=== PATIENT | male | born 1940 | race Caucasian/White ===

== ENCOUNTER 2017-03-19 01:53 | Inpatient (IN) | payer MEDICARE, OTHER ==
[~2017-03-19] VITALS: Ht 167.6 cm; Wt 77.8 kg
[~2017-03-19 01:53] MED LIST: AMLO5TAB2 PO; BUP75T PO; CARB25TA57 PO; ENTA200T4 PO; INSLANTI SC; QUET50TA25 PO; ROPI2TAB4 PO; ZOLP5TAB5 PO
[2017-03-19] MEDS ORDERED: DEXTROSE (50%) 50ML SYRG IV ONE ×2 (02:15→02:45)
[2017-03-19 02:30] LABS: INR 1.17 (0.9-1.15); Partial Thromboplastin Time 28.9 sec (22.64-33.71); Prothrombin Time 12.8 sec (9.37-12.3)
[2017-03-19 02:38] LABS: Albumin 3.7 g/dL (3.4-5.0); Alkaline Phosphatase 56 U/L (45-117); Anion Gap 6 (5-15); Aspartate Aminotransferase 15 U/L (15-37); BUN/Creatinine Ratio 15.7; Bilirubin, Total 0.5 mg/dL (0.2-1.0); Blood Urea Nitrogen 16 mg/dL (7-18); Carbon Dioxide 27 mmol/L (21-32); Chloride 108 mmol/L (98-107); GFR African American 91 mL/min; GFR Non-African American 75 mL/min; Magnesium 2.3 mg/dL (1.6-2.6); Potassium 3.2 mmol/L (3.5-5.1); Sodium 141 mmol/L (136-145)
[2017-03-19 02:39] LABS: Glucose 47 mg/dL (74-106)
[2017-03-19 02:51] LABS: Urine Bilirubin Negative (Negative); Urine Blood 2+ /uL (Negative); Urine Color Yellow (Yellow); Urine Glucose TRACE mg/dL (Normal); Urine Ketone Negative (Negative); Urine Nitrite Negative (Negative); Urine RBC 53 /hpf (0 - 3); Urine Urobilinogen Normal (Negative); Urine pH 6.5 (5.0-8.0)
[2017-03-19] MEDS ORDERED: DEXTROSE 10% 1,000 ML IV ONE (05:00)
[2017-03-19 05:07] LABS: Basophils # (auto) 0 uL; Basophils % (auto) 0.5 % (0.0-2.0); Eosinophils # (auto) 0.1 uL; Eosinophils % (auto) 1.1 % (0.0-7.0); Hematocrit 45.9 % (41.0-53.0); Hemoglobin 15.7 g/dL (13.5-17.5); Lymphocytes # (auto) 1.9 uL; Lymphocytes % (auto) 23.2 % (10.0-50.0); Mean Corpuscular Hemoglobin 31.5 pg (28.0-32.0); Mean Corpuscular Hgb Conc. 34.3 g/dL (32.0-36.0); Mean Corpuscular Volume 91.8 fL (80.0-100.0); Mean Platelet Volume 7.3 fL (6.9-10.8); Monocytes # (auto) 0.8 uL; Monocytes % (auto) 9.7 % (0.0-12.0); Neutrophils # (auto) 5.5 uL; Neutrophils % (auto) 65.5 % (37.0-80.0); Platelet Count (auto) 160 10^3/uL (140-450); Red Cell Distribution Width 14.2 % (11.8-14.3); White Blood Cell 8.3 10^3/uL (4.4-10.8)
[2017-03-19] MEDS ORDERED: ACETAMINOPHEN 500 MG TAB PO PRN (07:15)
[2017-03-19] MEDS ORDERED: DEXTROSE (50%) 50ML SYRG IV PRN (07:15)
[2017-03-19] MEDS ORDERED: ONDANSETRON HCL 4 MG/2 ML VIAL IV PRN (07:15)
[2017-03-19] MEDS ORDERED: POTASSIUM CHL 20 Meq TABLET PO ONE (07:45)
[2017-03-19] MEDS ORDERED: ZOLPIDEM TARTRATE 5 MG TAB PO PRN (07:45)
[2017-03-19] MEDS: ACCU-CHEK COMFORT CURVE STRIP VI SCH ×5 (08:00→22:49)
[2017-03-19] MEDS: QUEtiapine FUMARATE 25 MG TAB PO SCH ×2 (10:06→20:51)
[2017-03-19] MEDS: amLODIPine BESYLATE 5 MG TAB PO SCH (10:07)
[2017-03-19] MEDS: HYDROcodone-ACET 5/325MG TAB PO PRN ×2 (10:32→20:52)
[2017-03-19 11:53] LABS: Temperature: 21.5 C (20.0-25.0)
[2017-03-19] MEDS: CARBIDOPA W LEVODOPA 25/100mg TABLET PO SCH ×2 (14:27→20:52)
[2017-03-19 17:01] VITALS: BP 125/75
[2017-03-19 20:00] VITALS: BP 154/77
[2017-03-20] VITALS (7 sets, daily range): BP systolic 105–138; BP diastolic 48–70
[2017-03-20] MEDS: ACCU-CHEK COMFORT CURVE STRIP VI SCH ×5 (04:00→20:00)
[2017-03-20] MEDS: CARBIDOPA W LEVODOPA 25/100mg TABLET PO SCH ×3 (05:30→21:39)
[2017-03-20] MEDS: HYDROcodone-ACET 5/325MG TAB PO PRN ×3 (05:31→21:39)
[2017-03-20 06:14] LABS: Basophils # (auto) 0 uL; Basophils % (auto) 0.6 % (0.0-2.0); Eosinophils # (auto) 0.1 uL; Eosinophils % (auto) 2.4 % (0.0-7.0); Hematocrit 45.5 % (41.0-53.0); Hemoglobin 15.4 g/dL (13.5-17.5); Lymphocytes % (auto) 32.8 % (10.0-50.0); Mean Corpuscular Hemoglobin 31.3 pg (28.0-32.0); Mean Corpuscular Hgb Conc. 33.9 g/dL (32.0-36.0); Mean Corpuscular Volume 92.4 fL (80.0-100.0); Mean Platelet Volume 6.9 fL (6.9-10.8); Monocytes # (auto) 0.5 uL; Monocytes % (auto) 8.6 % (0.0-12.0); Neutrophils # (auto) 3.3 uL; Neutrophils % (auto) 55.6 % (37.0-80.0); Nucleated Red Blood Cells % 0.1 %; Platelet Count (auto) 142 10^3/uL (140-450); Red Cell Distribution Width 14.6 % (11.8-14.3)
[2017-03-20 06:36] LABS: Calcium 7.8 mg/dL (8.5-10.1); Potassium 3.9 mmol/L (3.5-5.1)
[2017-03-20] MEDS: QUEtiapine FUMARATE 25 MG TAB PO SCH ×2 (10:04→21:39)
[2017-03-20] MEDS: amLODIPine BESYLATE 5 MG TAB PO SCH (10:05)
[2017-03-20] MEDS ORDERED: buPROPion HCL 75 MG TAB PO ONE (10:15)
[2017-03-20] MEDS ORDERED: LACTULOSE 20Gm/30ML SOLN PO PRN (13:45)
[2017-03-20] MEDS ORDERED: LACTULOSE 20Gm/30ML SOLN PO ONE (13:45)
[2017-03-20] MEDS: buPROPion HCL 75 MG TAB PO SCH (18:55)
[2017-03-21] MEDS: ACCU-CHEK COMFORT CURVE STRIP VI SCH ×5 (04:00→21:33)
[2017-03-21 04:43] VITALS: BP 140/63
[2017-03-21] MEDS: CARBIDOPA W LEVODOPA 25/100mg TABLET PO SCH ×3 (06:07→21:33)
[2017-03-21] MEDS: buPROPion HCL 75 MG TAB PO SCH ×2 (06:07→18:07)
[2017-03-21] MEDS: HYDROcodone-ACET 5/325MG TAB PO PRN ×3 (06:08→21:33)
[2017-03-21 06:57] LABS: Basophils # (auto) 0 uL; Basophils % (auto) 0.6 % (0.0-2.0); Eosinophils # (auto) 0.2 uL; Eosinophils % (auto) 3.8 % (0.0-7.0); Hemoglobin 16.4 g/dL (13.5-17.5); Lymphocytes # (auto) 1.9 uL; Lymphocytes % (auto) 30.5 % (10.0-50.0); Mean Corpuscular Hemoglobin 31.9 pg (28.0-32.0); Mean Corpuscular Hgb Conc. 34.8 g/dL (32.0-36.0); Mean Corpuscular Volume 91.6 fL (80.0-100.0); Mean Platelet Volume 7.3 fL (6.9-10.8); Monocytes # (auto) 0.5 uL; Monocytes % (auto) 8.1 % (0.0-12.0); Neutrophils # (auto) 3.5 uL; Nucleated Red Blood Cells % 0.1 %; Platelet Count (auto) 145 10^3/uL (140-450); Red Cell Distribution Width 14.3 % (11.8-14.3); White Blood Cell 6.1 10^3/uL (4.4-10.8)
[2017-03-21 07:11] LABS: Potassium 3.9 mmol/L (3.5-5.1)
[2017-03-21 07:20] LABS: Albumin 3.4 g/dL (3.4-5.0); BUN/Creatinine Ratio 20.5; Calcium 8.7 mg/dL (8.5-10.1)
[2017-03-21 07:23] LABS: Bilirubin, Total 0.8 mg/dL (0.2-1.0); Total Protein 6.6 g/dL (6.4-8.2)
[2017-03-21 08:00] VITALS: BP 105/87
[2017-03-21] MEDS: MORPHINE SULF INJ 2 MG/ML SYRINGE 1ML IV PRN (08:21)
[2017-03-21 09:00] VITALS: BP 105/87
[2017-03-21] MEDS: QUEtiapine FUMARATE 25 MG TAB PO SCH ×2 (11:29→21:33)
[2017-03-21] MEDS: amLODIPine BESYLATE 5 MG TAB PO SCH (11:29)
[2017-03-21] MEDS ORDERED: DEXTROSE (50%) 50ML SYRG IV PRN (12:30)
[2017-03-21 13:00] VITALS: BP 120/58
[2017-03-21 17:00] VITALS: BP 140/94
[2017-03-21] MEDS: InsuLIN REG 1unit/0.01ml Soln (100units/ml) SC SCH ×2 (17:00→21:33)
[2017-03-21 21:11] VITALS: BP 137/97
[2017-03-22 05:00] VITALS: BP 103/55
[2017-03-22 06:26] LABS: Basophils # (auto) 0 uL; Basophils % (auto) 0.5 % (0.0-2.0); Eosinophils # (auto) 0.2 uL; Eosinophils % (auto) 3.7 % (0.0-7.0); Hematocrit 45.5 % (41.0-53.0); Hemoglobin 15.6 g/dL (13.5-17.5); Lymphocytes # (auto) 2.3 uL; Lymphocytes % (auto) 34.4 % (10.0-50.0); Mean Corpuscular Hemoglobin 32.1 pg (28.0-32.0); Mean Corpuscular Hgb Conc. 34.3 g/dL (32.0-36.0); Mean Corpuscular Volume 93.6 fL (80.0-100.0); Mean Platelet Volume 7.3 fL (6.9-10.8); Monocytes # (auto) 0.6 uL; Monocytes % (auto) 8.8 % (0.0-12.0); Neutrophils # (auto) 3.5 uL; Neutrophils % (auto) 52.6 % (37.0-80.0); Platelet Count (auto) 148 10^3/uL (140-450); Red Cell Distribution Width 14.3 % (11.8-14.3); White Blood Cell 6.7 10^3/uL (4.4-10.8)
[2017-03-22] MEDS: InsuLIN REG 1unit/0.01ml Soln (100units/ml) SC SCH ×4 (06:36→22:38)
[2017-03-22] MEDS: ACCU-CHEK COMFORT CURVE STRIP VI SCH ×4 (06:36→22:00)
[2017-03-22] MEDS: CARBIDOPA W LEVODOPA 25/100mg TABLET PO SCH ×3 (06:36→22:35)
[2017-03-22] MEDS: buPROPion HCL 75 MG TAB PO SCH ×2 (06:36→17:54)
[2017-03-22 07:17] LABS: Albumin 3.1 g/dL (3.4-5.0); Bilirubin, Total 0.7 mg/dL (0.2-1.0); Calcium 8.2 mg/dL (8.5-10.1); Total Protein 6.3 g/dL (6.4-8.2)
[2017-03-22 08:00] VITALS: BP 105/87
[2017-03-22] MEDS: HYDROcodone-ACET 5/325MG TAB PO PRN ×4 (08:19→22:38)
[2017-03-22 09:00] VITALS: BP 152/77
[2017-03-22] MEDS: QUEtiapine FUMARATE 25 MG TAB PO SCH ×2 (10:11→22:34)
[2017-03-22] MEDS: amLODIPine BESYLATE 5 MG TAB PO SCH (10:12)
[2017-03-22 13:00] VITALS: BP 114/78
[2017-03-22] MEDS: MORPHINE SULF INJ 2 MG/ML SYRINGE 1ML IV PRN (15:02)
[2017-03-22 17:00] VITALS: BP 123/63
[2017-03-22 20:00] VITALS: BP 105/94
[2017-03-23 05:00] VITALS: BP 130/63
[2017-03-23] MEDS: HYDROcodone-ACET 5/325MG TAB PO PRN (05:01)
[2017-03-23] MEDS: CARBIDOPA W LEVODOPA 25/100mg TABLET PO SCH (05:54)
[2017-03-23] MEDS: ACCU-CHEK COMFORT CURVE STRIP VI SCH ×2 (06:40→11:30)
[2017-03-23] MEDS: InsuLIN REG 1unit/0.01ml Soln (100units/ml) SC SCH (06:41)
[2017-03-23] MEDS: buPROPion HCL 75 MG TAB PO SCH (06:42)
[2017-03-23 08:00] VITALS: BP 125/61
[2017-03-23] MEDS: amLODIPine BESYLATE 5 MG TAB PO SCH (09:14)
[2017-03-23] MEDS: QUEtiapine FUMARATE 25 MG TAB PO SCH (09:15)
[2017-03-23] MEDS: MORPHINE SULF INJ 2 MG/ML SYRINGE 1ML IV PRN (09:15)
[2017-03-23 13:32] VITALS: BP 125/61
== END 2017-03-23 14:37 | DRG 917 ==
LOC: EDBD 01:53 → ER 01:56 → OVERFLOW 01:57 → TELE-E-ADS 07:30 → EAST 12:37 → CENTRAL 15:30 → WEST WING 03-21 23:51
PROVIDERS: ADMIT Nurse Practitioner Family; ATTEND Internal Medicine
DX: T38.3X1A Poisoning by insulin and oral hypoglycemic [antidiabetic] drugs, accidental (unintentional), initial encounter (principal); G93.41 Metabolic encephalopathy; E11.649 Type 2 diabetes mellitus with hypoglycemia without coma; E11.22 Type 2 diabetes mellitus with diabetic chronic kidney disease; F03.90 Unspecified dementia, unspecified severity, without behavioral disturbance, psychotic disturbance, mood disturbance, and anxiety; E87.6 Hypokalemia; N18.2 Chronic kidney disease, stage 2 (mild); Z79.4 Long term (current) use of insulin; I12.9 Hypertensive chronic kidney disease with stage 1 through stage 4 chronic kidney disease, or unspecified chronic kidney disease
CPT/HCPCS: 36415; 71010; 74176; 80048; 80053; 80307; 80320; 81001; 82962; 83036; 83735; 83880; 84443; 84484; 85025; 85610; 85730; 93005; 96374; 97163; 97530; J1815; J2405